=== PATIENT | female | born 1945 | race Caucasian/White ===

== ENCOUNTER 2021-05-21 06:15 | Inpatient (IN) | payer MEDICARE, OTHER ==
[2021-05-21] MEDS ORDERED: Pantoprazole 40 MG VIAL ONE (07:02)
[2021-05-21 07:35] LABS: #Eosinphils 0.1 thou/uL (0.0-0.7); #Lymphocytes 1.5 thou/uL (1.20-3.40); #Monocytes 1.1 thou/uL (0.11-0.59); #Neutrophils 9.3 thou/uL (1.40-6.50); %Basophils 0.3 % (0.0-1.0); %Eosinophils 0.8 % (0.0-10.0); %Lymphocytes 12.2 % (21.0-51.0); %Monocytes 9.1 % (0.0-10.0); %Neutrophils 77.6 % (42.0-75.0); Hemoglobin 11.5 g/dL (12.0-16.0); Mean Corpuscular HGB CONC 33.9 g/dL (32.0-36.0); Mean Corpuscular Hemoglobin 32.7 pg (27.0-31.0); Mean Corpuscular Volume 96.3 fL (78.0-98.0); Mean Platelet Volume 9.9 fL (7.4-10.4); Platelet Count 227 thou/uL (130-400); RBC Distribution Width 12.7 % (11.5-14.5); Red Blood Cell (RBC) Count 3.52 mill/uL (4.20-5.40); White Blood Cell (WBC) Count 11.9 thou/uL (4.8-10.8)
[2021-05-21 07:35] LABS: ALT (SGPT) 18 U/L (8-55); AST (SGOT) 17 U/L (5-34); Albumin 3.7 g/dL (3.4-4.8); Alkaline Phosphatase 95 U/L (40-110); Anion Gap 13 mmol/L (10-20); BUN (Urea Nitrogen) 30 mg/dL (9.8-20.1); Bilirubin, Total 0.4 mg/dL (0.2-1.2); Calc. Creatinine Clearance 0 mL/min (70-130); Calcium 9.8 mg/dL (7.8-10.44); Carbon Dioxide 23 mmol/L (23-31); Chloride 108 mmol/L (98-107); Globulin 2.7 g/dL (2.4-3.5); Glucose 125 mg/dL (83-110); Potassium 3.9 mmol/L (3.5-5.1); Protein, Total 6.4 g/dL (5.8-8.1); Sodium 140 mmol/L (136-145)
[2021-05-21 07:58] LABS: PTT 24.5 sec (22.9-36.1); Prothrombin Time 13.6 sec (12.0-14.7)
[2021-05-21] MEDS ORDERED: Iopamidol-370 76% 500 ML 1 ML ONE (09:23)
[2021-05-21] MEDS ORDERED: Acetaminophen 325 MG TAB PO PRN (11:39)
[2021-05-21] MEDS ORDERED: Ondansetron PF 4 MG/2 ML Vial IVP PRN (12:06)
[2021-05-21] MEDS ORDERED: Ondansetron ODT 4 MG TAB PO PRN (12:06)
[2021-05-21 12:32] VITALS: BMI 26.1
[2021-05-21 13:33] LABS: Bacteria/HPF None Seen HPF (None Seen); Bilirubin Negative (Negative); Blood, Urine 3+ (Negative); Clarity Clear (Clear); Glucose, Urine (Dipstick) Normal (Negative); Ketone, Urine Negative (Negative); Leukocyte 75 Leu/uL (Negative); Nitrite Negative (Negative); Protein, Urine (Dipstick) Negative (Neg-Trace); RBC/HPF 0-3 HPF (0-3); Specific Gravity, Urine 1.037 (1.002-1.036); Squamous Epithelial 0-3 HPF (0-3); Urobilinogen Normal mg/dL (Less than 2); WBC/HPF 0-3 HPF (0-3)
[2021-05-21 13:36] LABS: Urine Culture Reflex Yes Yes
[2021-05-21] MEDS: Sodium Chloride 0.9% 1,000 ML IV SCH ×3 (13:45→20:45)
[2021-05-21 15:07] LABS: #Basophils 0.1 thou/uL (0.0-0.2); #Eosinphils 0.1 thou/uL (0.0-0.7); #Lymphocytes 2.3 thou/uL (1.20-3.40); #Neutrophils 6.4 thou/uL (1.40-6.50); %Eosinophils 1.1 % (0.0-10.0); %Lymphocytes 23.6 % (21.0-51.0); %Monocytes 9.8 % (0.0-10.0); %Neutrophils 64.5 % (42.0-75.0); Hemoglobin 10.7 g/dL (12.0-16.0); Mean Corpuscular HGB CONC 34.2 g/dL (32.0-36.0); Mean Corpuscular Hemoglobin 33.1 pg (27.0-31.0); Mean Corpuscular Volume 96.8 fL (78.0-98.0); Mean Platelet Volume 9.9 fL (7.4-10.4); Platelet Count 220 thou/uL (130-400); RBC Distribution Width 12.7 % (11.5-14.5); Red Blood Cell (RBC) Count 3.22 mill/uL (4.20-5.40); White Blood Cell (WBC) Count 9.9 thou/uL (4.8-10.8)
[2021-05-21 17:08] LABS: SARS-CoV-2 PCR by NAA Not Detected (NotDetected)
[2021-05-21] MEDS: Metoprolol Tartrate 25 MG TAB PO SCH (20:45)
[2021-05-21] MEDS: Atorvastatin Calcium 40 MG TAB PO SCH (20:45)
[2021-05-22 06:30] LABS: #Eosinphils 0.2 thou/uL (0.0-0.7); #Lymphocytes 2.6 thou/uL (1.20-3.40); #Monocytes 0.9 thou/uL (0.11-0.59); #Neutrophils 4.6 thou/uL (1.40-6.50); %Basophils 0.6 % (0.0-1.0); %Eosinophils 2.9 % (0.0-10.0); %Lymphocytes 31.3 % (21.0-51.0); %Monocytes 10.4 % (0.0-10.0); %Neutrophils 54.8 % (42.0-75.0); Mean Corpuscular HGB CONC 30.5 g/dL (32.0-36.0); Mean Corpuscular Volume 98.5 fL (78.0-98.0); Mean Platelet Volume 10.5 fL (7.4-10.4); Platelet Count 200 thou/uL (130-400); White Blood Cell (WBC) Count 8.3 thou/uL (4.8-10.8)
[2021-05-22 06:48] LABS: Anion Gap 7 mmol/L (10-20); BUN (Urea Nitrogen) 18 mg/dL (9.8-20.1); Calc. Creatinine Clearance 62 mL/min (70-130); Calcium 8.8 mg/dL (7.8-10.44); Carbon Dioxide 26 mmol/L (23-31); Chloride 114 mmol/L (98-107); Glucose 96 mg/dL (83-110); Potassium 4.4 mmol/L (3.5-5.1); Sodium 143 mmol/L (136-145)
[2021-05-22] MEDS: Pantoprazole 40 MG VIAL IVP SCH (08:03)
[2021-05-22] MEDS: Metoprolol Tartrate 25 MG TAB PO SCH ×2 (08:03→21:18)
[2021-05-22] MEDS ORDERED: Heparin 1,000 UNITS/ML VIAL ONE (09:22)
[2021-05-22] MEDS: Sodium Chloride 0.9% 1,000 ML IV SCH (15:32)
[2021-05-22 16:24] LABS: Hemoglobin 10.6 g/dL (12.0-16.0)
[2021-05-22] MEDS: cefTRIAXone\\ROCEPHIN 1 GM in Sodium Chloride 0.9% 100 ML IVPB SCH (16:47)
[2021-05-22] MEDS: Atorvastatin Calcium 40 MG TAB PO SCH (21:18)
[2021-05-23 04:54] LABS: #Basophils 0.1 thou/uL (0.0-0.2); #Eosinphils 0.2 thou/uL (0.0-0.7); #Lymphocytes 2.2 thou/uL (1.20-3.40); #Monocytes 0.8 thou/uL (0.11-0.59); #Neutrophils 4.5 thou/uL (1.40-6.50); %Basophils 0.8 % (0.0-1.0); %Eosinophils 3.2 % (0.0-10.0); %Lymphocytes 28.1 % (21.0-51.0); %Monocytes 9.8 % (0.0-10.0); %Neutrophils 58.2 % (42.0-75.0); Hemoglobin 8.3 g/dL (12.0-16.0); Mean Corpuscular HGB CONC 33.6 g/dL (32.0-36.0); Mean Corpuscular Hemoglobin 32.9 pg (27.0-31.0); Mean Platelet Volume 10.2 fL (7.4-10.4); Platelet Count 187 thou/uL (130-400); RBC Distribution Width 12.7 % (11.5-14.5); Red Blood Cell (RBC) Count 2.53 mill/uL (4.20-5.40); White Blood Cell (WBC) Count 7.8 thou/uL (4.8-10.8)
[2021-05-23 05:08] LABS: Anion Gap 8 mmol/L (10-20); BUN (Urea Nitrogen) 17 mg/dL (9.8-20.1); Calc. Creatinine Clearance 64 mL/min (70-130); Calcium 9.1 mg/dL (7.8-10.44); Carbon Dioxide 27 mmol/L (23-31); Chloride 111 mmol/L (98-107); Glucose 92 mg/dL (83-110); Sodium 142 mmol/L (136-145)
[2021-05-23] MEDS ORDERED: Atorvastatin Calcium 40 MG TAB PO SCH (09:00)
[2021-05-23] MEDS: DULoxetine 30 MG CAP PO SCH (09:27)
[2021-05-23] MEDS: Losartan 25 MG TAB PO SCH (09:27)
[2021-05-23] MEDS: Pantoprazole 40 MG VIAL IVP SCH (09:28)
[2021-05-23] MEDS: Sodium Chloride 0.9% 1,000 ML IV SCH ×2 (09:30→17:46)
[2021-05-23] MEDS ORDERED: GoLYTELY 4,000 ml Bottle PO SCH (09:45)
[2021-05-23 12:45] LABS: Hemoglobin 9.1 g/dL (12.0-16.0)
[2021-05-23] MEDS ORDERED: PROPOFOL 200 MG/20 ML VIAL ONE (13:01)
[2021-05-23] MEDS ORDERED: Lidocaine 1% PF 5 ML VIAL ONE (13:01)
[2021-05-23] MEDS: cefTRIAXone\\ROCEPHIN 1 GM in Sodium Chloride 0.9% 100 ML IVPB SCH (17:46)
[2021-05-23] MEDS: Atorvastatin Calcium 40 MG TAB PO SCH (21:03)
[2021-05-23 23:12] LABS: Hemoglobin 8.6 g/dL (12.0-16.0)
[2021-05-23] MEDS: Diltiazem HCl 125 MG, Admixture Fee 1 EACH in Sodium Chloride 0.9% 100 ML IVPB SCH (23:20)
[2021-05-24 05:35] LABS: #Basophils 0.1 thou/uL (0.0-0.2); #Eosinphils 0.2 thou/uL (0.0-0.7); #Lymphocytes 2.3 thou/uL (1.20-3.40); #Monocytes 0.8 thou/uL (0.11-0.59); #Neutrophils 5.4 thou/uL (1.40-6.50); %Basophils 0.6 % (0.0-1.0); %Eosinophils 1.8 % (0.0-10.0); %Lymphocytes 26.3 % (21.0-51.0); %Monocytes 9.6 % (0.0-10.0); %Neutrophils 61.6 % (42.0-75.0); Hemoglobin 7.5 g/dL (12.0-16.0); Mean Corpuscular HGB CONC 33.4 g/dL (32.0-36.0); Mean Corpuscular Hemoglobin 32.2 pg (27.0-31.0); Mean Corpuscular Volume 96.5 fL (78.0-98.0); Mean Platelet Volume 10.2 fL (7.4-10.4); Platelet Count 211 thou/uL (130-400); RBC Distribution Width 12.7 % (11.5-14.5); Red Blood Cell (RBC) Count 2.34 mill/uL (4.20-5.40); White Blood Cell (WBC) Count 8.7 thou/uL (4.8-10.8)
[2021-05-24 05:51] LABS: Anion Gap 9 mmol/L (10-20); BUN (Urea Nitrogen) 11 mg/dL (9.8-20.1); Calc. Creatinine Clearance 66 mL/min (70-130); Calcium 8.7 mg/dL (7.8-10.44); Carbon Dioxide 26 mmol/L (23-31); Chloride 110 mmol/L (98-107); Glucose 93 mg/dL (83-110); Potassium 3.9 mmol/L (3.5-5.1); Sodium 141 mmol/L (136-145)
[2021-05-24] MEDS: Sodium Chloride 0.9% 1,000 ML IV SCH ×4 (06:31→16:49)
[2021-05-24] MEDS: DULoxetine 30 MG CAP PO SCH (09:15)
[2021-05-24] MEDS: Pantoprazole 40 MG VIAL IVP SCH (09:15)
[2021-05-24] MEDS: Losartan 25 MG TAB PO SCH (09:15)
[2021-05-24 16:16] LABS: Hemoglobin 9.4 g/dL (12.0-16.0)
[2021-05-24] MEDS: cefTRIAXone\\ROCEPHIN 1 GM in Sodium Chloride 0.9% 100 ML IVPB SCH (16:49)
[2021-05-24] MEDS: Diltiazem HCl 125 MG, Admixture Fee 1 EACH in Sodium Chloride 0.9% 100 ML IVPB SCH (18:15)
[2021-05-24] MEDS ORDERED: Diltiazem HCl 125 MG, Admixture Fee 1 EACH in Sodium Chloride 0.9% 100 ML IVPB SCH (18:17)
[2021-05-24] MEDS: Atorvastatin Calcium 40 MG TAB PO SCH (21:59)
[2021-05-25 04:45] LABS: Hemoglobin 8.7 g/dL (12.0-16.0)
[2021-05-25] MEDS: Sodium Chloride 0.9% 1,000 ML IV SCH ×5 (08:38→15:18)
[2021-05-25] MEDS: Losartan 25 MG TAB PO SCH (08:39)
[2021-05-25] MEDS: DULoxetine 30 MG CAP PO SCH (08:39)
[2021-05-25] MEDS: Pantoprazole 40 MG VIAL IVP SCH (10:58)
[2021-05-25] MEDS: cefTRIAXone\\ROCEPHIN 1 GM in Sodium Chloride 0.9% 100 ML IVPB SCH (15:17)
[2021-05-25 15:22] LABS: Hemoglobin 10.8 g/dL (12.0-16.0)
[2021-05-25] MEDS: Atorvastatin Calcium 40 MG TAB PO SCH (20:53)
[2021-05-26 05:24] LABS: Hemoglobin 8.7 g/dL (12.0-16.0)
[2021-05-26] MEDS: Sodium Chloride 0.9% 1,000 ML IV SCH ×2 (09:21→14:12)
[2021-05-26] MEDS: Losartan 25 MG TAB PO SCH (09:22)
[2021-05-26] MEDS: DULoxetine 30 MG CAP PO SCH (09:23)
[2021-05-26] MEDS: Pantoprazole 40 MG VIAL IVP SCH (11:27)
[2021-05-26 19:29] VITALS: BP 129/60; TEMP 98.5
[2021-05-26] MEDS: cefTRIAXone\\ROCEPHIN 1 GM in Sodium Chloride 0.9% 100 ML IVPB SCH (19:34)
[2021-05-30] MEDS ORDERED: Clopidogrel Bisulfate 75 MG TAB PO SCH (09:00)
== END 2021-05-26 17:40 | disposition home or self-care (01) | DRG 378 ==
LOC: ERS 06:15 → T4-A 11:39 → 2NO 05-22 19:48 → OBSVTOIN 05-23 10:33
PROVIDERS: ADMIT Family Medicine; ATTEND Internal Medicine
PROC: 0DJD8ZZ Inspection of Lower Intestinal Tract, Via Natural or Artificial Opening Endoscopic (ICD-10-PCS; principal; 2021-05-23)
PROC: 30233N1 Transfusion of Nonautologous Red Blood Cells into Peripheral Vein, Percutaneous Approach (ICD-10-PCS; 2021-05-24)
DX: K57.31 Diverticulosis of large intestine without perforation or abscess with bleeding (principal); N39.0 Urinary tract infection, site not specified; D62 Acute posthemorrhagic anemia; I25.10 Atherosclerotic heart disease of native coronary artery without angina pectoris; M19.90 Unspecified osteoarthritis, unspecified site; I10 Essential (primary) hypertension; F41.9 Anxiety disorder, unspecified; D64.9 Anemia, unspecified; E78.5 Hyperlipidemia, unspecified; E78.00 Pure hypercholesterolemia, unspecified; I48.0 Paroxysmal atrial fibrillation; Z20.822 Contact with and (suspected) exposure to COVID-19; I25.2 Old myocardial infarction; Z95.5 Presence of coronary angioplasty implant and graft
CPT/HCPCS: 36415; 36430; 74177; 78278; 80048; 80053; 81001; 85014; 85018; 85025; 85610; 85730; 86850; 86900; 86901; 87045; 87046; 87086; 87324; 87427; 87449; 93005; 93010; 96374; 96375; 96376; A9604; C9113; G0378; J0696; J1644; J2704; J3490; J7050; P9016; Q9967; U0003; U0005